=== PATIENT | male | born 1940 | race Asian ===

== ENCOUNTER → 2017-06-15 | Outpatient (CLI) | payer MEDICARE, OTHER ==
[~2017-06-15] MED LIST: ENAL2.5T PO; METF10002 PO; ROSU5TAB3 PO
== END | disposition home or self-care (01) ==
LOC: RADPV 10:37
PROVIDERS: ATTEND Emergency Medicine
DX: M19.012 Primary osteoarthritis, left shoulder (principal)

== ENCOUNTER → 2018-04-15 | Outpatient (CLI) | payer MEDICARE, OTHER ==
[~2018-04-15] VITALS: Ht 162.6 cm; Wt 64.5 kg
[~2018-04-15] MED LIST changes: +LORA10TA7 PO; -METF10002 PO; +METF10004 PO; +METF500T6 PO; +ROSU5TAB PO; -ROSU5TAB3 PO; +TELM40 PO
[2018-04-15 13:16] VITALS: BP 136/62
== END | disposition home or self-care (01) ==
LOC: SRCNTR 13:08
PROVIDERS: ATTEND Internal Medicine
DX: E11.9 Type 2 diabetes mellitus without complications (principal); I10 Essential (primary) hypertension
CPT/HCPCS: G0463

== ENCOUNTER → 2018-08-05 | Outpatient (CLI) | payer MEDICARE, OTHER ==
[~2018-08-05] VITALS: Ht 162.6 cm; Wt 61.5 kg
[~2018-08-05] MED LIST changes: +METF-960 PO; -METF10004 PO; -METF500T6 PO
[2018-08-05 11:43] VITALS: BP 143/68
== END | disposition home or self-care (01) ==
LOC: SRCNTR 11:37
PROVIDERS: ATTEND Internal Medicine
DX: G47.33 Obstructive sleep apnea (adult) (pediatric) (principal); J44.9 Chronic obstructive pulmonary disease, unspecified; E11.9 Type 2 diabetes mellitus without complications; I10 Essential (primary) hypertension; Z87.891 Personal history of nicotine dependence
CPT/HCPCS: G0463